=== PATIENT | female | born 1960 | race Caucasian/White ===

== ENCOUNTER 2017-12-20 15:33 | Observation (INO) | payer OTHER, SELFPAY ==
[2017-12-20] VITALS (7 sets, daily range): BP systolic 120–154; BP diastolic 65–96; PULSE 61–71; RESP 14–18; TEMP 36.1–36.6; O2SAT 96–100; BMI 23.0
--- NOTE | 2017-12-20 15:45 | ED_ITS ---
HPI - Abdominal Pain General Chief Complaint: Abdominal Pain Stated Complaint: ABD PAIN Time Seen by Provider: 12/20/17 15:45 Source: patient Mode of arrival: ambulatory Limitations: no limitations History of Present Illness HPI narrative: 57-year-old female here for evaluation of right lower quadrant abdominal pain. Patient was sent to us from the [facility] Emergency Department for concerns of possible appendicitis. Their CT scanner was inoperable. Patient states that she has had abdominal pain off and on for several months now. She states she has had multiple CT scans of her abdomen with the latest 1 being 2 days ago. According to the report from the [facility] emergency physician the CT scan that was done 2 days ago was inconclusive for appendicitis. The appendix was unable to be seen however there was no stranding around the area and no elevated white blood cell count. Patient states since then her abdominal pain has been worsening. Related Data Home Medications Medication Instructions Recorded Confirmed lorazepam 1 mg PO PRN PRN 12/20/17 12/20/17 thyroid (pork) [Nature-Throid] 1 tab PO QAM 12/20/17 12/20/17 venlafaxine 1 cap PO BID 12/20/17 12/20/17 Allergies Allergy/AdvReac Type Severity Reaction Status Date / Time prochlorperazine Allergy Intermediate Anxiety Verified 12/20/17 18:05 [From COMPAZINE] Sulfa (Sulfonamide Allergy Unknown Verified 12/20/17 18:05 Antibiotics) [SULFA (SULFONAMIDE ANTIBIOTICS)] azithromycin [From Zithromax] AdvReac Unknown Verified 12/20/17 18:05 latex AdvReac Unknown Verified 12/20/17 18:05 Review of Systems Constitutional Denies fatigue, Denies fever(s) and Denies headache(s) ENT Ears, Nose, Mouth, and Throat: Denies headache(s) Cardiovascular Denies chest pain, Denies palpitations and Denies dyspnea Respiratory Denies dyspnea Gastrointestinal Gastrointestinal: Reports abdominal pain, Denies constipation, Denies diarrhea, Reports nausea and Denies vomiting Genitourinary Denies dysuria and Denies flank pain Musculoskeletal Denies myalgias and Denies arthralgias Integumentary/Breasts Denies lesions and Denies rash Neurologic Denies confusion and Denies headache(s) Psychiatric Denies confusion Endocrine Denies fatigue and Denies palpitations Hematologic/Lymphatic Denies easy bleeding and Denies easy bruising [facility] Comment: Reviewed patient's past medical surgical family and social history Exam Initial Vital Signs Initial Vital Signs: Vital Signs Temperature 97.6 F 12/20/17 15:39 Pulse Rate 71 12/20/17 15:39 Respiratory Rate 16 12/20/17 15:39 Blood Pressure 154/96 H 12/20/17 15:39 Pulse Oximetry 98 12/20/17 15:39 Const General: cooperative, well developed and well groomed Orientation: alert, awake and oriented x3 Resp Effort & Inspection: normal respiratory effort Auscultation: clear to auscultation bilaterally Cardio Rate: regular rate Rhythm: regular rhythm Pulses: radial pulses present GI Other: Right lower quadrant abdominal pain with guarding. Some right upper quadrant Back/Spine/Pelvis Back: No CVA tenderness Skin General: no rashes or lesions noted Lesions: no lesions Rashes: no rashes Neuro General: alert and oriented x3 Cognition: normal cognition Speech: speech normal Extrem General: normal to inspection and capillary refill normal Psych Appearance: grossly normal, well kempt and not disheveled Course Orders Ordered: ED Orders 12/20/17 15:55 CT abdomen pelvis w con Stat 12/20/17 16:00 Complete Blood Count AUTO DIFF Stat Comprehensive Metabolic Panel Stat Lactate (Lactic Acid) Stat 12/20/17 16:10 Urinalysis and Microscopic Stat Sodium Chloride (Normal Saline 0.9%) 1,000 mls @ 125 mls/hr IV CONT ARMANDO Last Infusion: 12/20/17 18:06 Dose: 0 mls/hr Admin: 12/20/17 17:29 Dose: 125 mls/hr Discontinued Medications Diphenhydramine HCl (Benadryl) 50 mg IV NOW ONE Stop: 12/20/17 15:56 Last Admin: 12/20/17 16:19 Dose: 50 mg Sodium Chloride (Normal Saline 0.9%) 1,000 mls @ 1,000 mls/hr IV BOLUS ONE Stop: 12/20/17 16:44 Last Infusion: 12/20/17 17:18 Dose: 0 mls/hr Admin: 12/20/17 16:18 Dose: 1,000 mls/hr Sodium Chloride (Normal Saline 0.9%) 1,000 mls @ 1,000 mls/hr IV BOLUS ONE Stop: 12/20/17 16:53 Last Admin: 12/20/17 17:26 Dose: Methylprednisolone (Solu-Medrol 125 Mg Vial) 40 mg IV NOW ONE Stop: 12/20/17 15:56 Last Admin: 12/20/17 16:19 Dose: 40 mg Ondansetron HCl (Zofran) 4 mg IV NOW ONE Stop: 12/20/17 17:22 Last Admin: 12/20/17 17:26 Dose: Vital Signs - 8 hr 12/20/17 15:39 12/20/17 15:45 12/20/17 17:47 Temperature 97.6 F 97.6 F 97.9 F Pulse Rate 71 71 62 Respiratory Rate 16 16 18 Blood Pressure [Right Wrist] 154/96 H 128/74 H Pulse Oximetry 98 98 96 12/20/17 18:34 Temperature Pulse Rate 65 Respiratory Rate 14 Blood Pressure [Right Wrist] 137/80 H Pulse Oximetry 100 MDM - Abdominal Pain Lab Data Attestation: I reviewed the patient's lab results. Result diagrams: 12/20/17 16:00 12/20/17 16:00 Lab Results 12/20/17 12/20/17 12/20/17 Range/Units 16:00 16:00 16:00 WBC 4.8 (4.5-11.0) X10^3/uL RBC 4.90 (4.0-5.2) X10^6/uL Hgb 15.5 (12.0-16.0) g/dL Hct 45.8 (36-46) % MCV 93.5 (80-100) fL MCH 31.6 (26-34) PG MCHC 33.8 (30-36) % RDW 13.0 (11.6-14.8) % Plt Count 193 (150-400) X10^3/uL Neut % (Auto) 64.9 (50-75) % Lymph % (Auto) 25.8 (25-40) % Stonewall % (Auto) 8.6 (3-14) % Eos % (Auto) 0.4 L (2-4) % Baso % (Auto) 0.3 (0-2) % Neut # (Auto) 3100 (7738-9198) /uL Sodium 139 (137-145) mmol/L Potassium 3.8 (3.4-5.1) mmol/L Chloride 102 (98-107) mmol/L Carbon Dioxide 28 (22-32) mmol/L BUN 16 (7-17) mg/dL Creatinine 0.80 (0.52-1.04) mg/dL Estimated GFR > 60.0 (>60) mL/min BUN/Creatinine Ratio 20.0 (6-22) Glucose 91 (70-100) mg/dL Lactate 1.0 (0.7-2.1) mmol/L Calcium 9.5 (8.4-10.2) mg/dL Total Bilirubin 0.5 (0.2-1.3) mg/dL AST 30 (14-36) IU/L ALT 29 (9-52) IU/L Alkaline Phosphatase 62 (38-126) U/L Total Protein 7.2 (6.3-8.2) g/dL Albumin 4.5 (3.5-5.0) g/dL Globulin 2.7 (1.7-4.1) g/dL Albumin/Globulin Ratio 1.7 (1.0-2.8) Urine Color Urine Appearance Urine pH (4.5-8.0) Ur Specific Jackson (1.000-1.035) Urine Protein (Negative) Urine Glucose (UA) (Normal) g/dL Urine Ketones (NEGATIVE) Urine Occult Blood (Negative) Urine Nitrate (Negative) Urine Bilirubin (NEGATIVE) Urine Urobilinogen (0.2) E.U./dL Ur Leukocyte Esterase (NEGATIVE) Urine RBC (0-5/HPF) Urine WBC (0-5/HPF) Urine Bacteria (None) Ur Culture Indicated? Micro UA Comment 12/20/17 Range/Units 16:10 WBC (4.5-11.0) X10^3/uL RBC (4.0-5.2) X10^6/uL Hgb (12.0-16.0) g/dL Hct (36-46) % MCV (80-100) fL MCH (26-34) PG MCHC (30-36) % RDW (11.6-14.8) % Plt Count (150-400) X10^3/uL Neut % (Auto) (50-75) % Lymph % (Auto) (25-40) % Stonewall % (Auto) (3-14) % Eos % (Auto) (2-4) % Baso % (Auto) (0-2) % Neut # (Auto) (3148-1027) /uL Sodium (137-145) mmol/L Potassium (3.4-5.1) mmol/L Chloride (98-107) mmol/L Carbon Dioxide (22-32) mmol/L BUN (7-17) mg/dL Creatinine (0.52-1.04) mg/dL Estimated GFR (>60) mL/min BUN/Creatinine Ratio (6-22) Glucose (70-100) mg/dL Lactate (0.7-2.1) mmol/L Calcium (8.4-10.2) mg/dL Total Bilirubin (0.2-1.3) mg/dL AST (14-36) IU/L ALT (9-52) IU/L Alkaline Phosphatase (38-126) U/L Total Protein (6.3-8.2) g/dL Albumin (3.5-5.0) g/dL Globulin (1.7-4.1) g/dL Albumin/Globulin Ratio (1.0-2.8) Urine Color Yellow Urine Appearance Clear Urine pH 7.5 (4.5-8.0) Ur Specific Jackson 1.010 (1.000-1.035) Urine Protein Negative (Negative) Urine Glucose (UA) Negative (Normal) g/dL Urine Ketones Negative (NEGATIVE) Urine Occult Blood Negative (Negative) Urine Nitrate Negative (Negative) Urine Bilirubin Negative (NEGATIVE) Urine Urobilinogen 0.2 (0.2) E.U./dL Ur Leukocyte Esterase Negative (NEGATIVE) Urine RBC None seen (0-5/HPF) Urine WBC None seen (0-5/HPF) Urine Bacteria None seen (None) Ur Culture Indicated? Cult not indicated Micro UA Comment Microscopic normal Imaging Data CT scan - abdomen: Radiologist's impression: PROCEDURE: CT ABDOMEN PELVIS W CON INDICATIONS: Right lower quadrant abdominal pain TECHNIQUE: After the administration of oral and intravenous contrast, 5 mm thick sections acquired from the diaphragms to the symphysis. 5 mm thick coronal and sagittal reformats were performed. For radiation dose reduction, the following was used: automated exposure control, adjustment of mA and/or kV according to patient size. COMPARISON: None. FINDINGS: Image quality: Excellent. ABDOMEN: Lung bases: Lung bases are clear. Heart size is normal. Solid organs: Liver is normal in size. Low attenuation foci are present within the liver, too small to definitively characterize. Punctate low attenuation focus is also noted in the posterior spleen. Gallbladder is unremarkable. Biliary system is non-dilated. Pancreas enhances normally. No adrenal nodules. Kidneys are normal in size and enhancement, without hydronephrosis. Bilateral low attenuation renal foci are present. Peritoneum and bowel: Stomach, small bowel, and colon loops are normal in caliber and wall thickness. No free fluid or air. Appendix is at the upper limits of normal in size without periappendiceal inflammatory change. Significant stool is present throughout the colon particularly the right colon. Nodes and vessels: No retroperitoneal or mesenteric adenopathy. Aorta and inferior vena cava are normal in caliber. 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 There is prominent increased vascularity within the pelvis and uterus. Miscellaneous: No ventral hernias. PELVIS: Genitourinary: Bladder wall thickness is normal. Miscellaneous: No inguinal hernias or adenopathy. Bones: No suspicious bony lesions. No vertebral body compression fractures. IMPRESSION: 1. Appendix is at the upper limits of normal in size without inflammatory change. This is considered equivocal. No priors are available for comparison. Recommend correlation with patient's symptoms and short interval imaging followup if appendicitis remains a concern. 2. Prominent vascularity within the left hemiabdomen extending to the pelvis as above. Overall appearance is suggestive of pelvic congestion syndrome. 3. Prominent colonic stool without obstruction. Recommend correlation to constipation. Dictated by: Edna Gonzalze M.D. on 12/20/2017 at 18:31 Approved by: Edna Gonzalez M.D. on 12/20/2017 at 18:36 MDM Narrative Medical decision making narrative: Patient with a physical exam that is concerning for appendicitis however CT scan that is not definitive for this. Does not have an elevated white count does not have any fevers. Does have stool backup in her right colon. Patient states that her last bowel movement was this morning. Patient also still has her pelvic organs. I discussed the case with Dr. Mendieta with General surgery. Will admit the patient overnight with a bowel regiment and pain control and then serial exams. Patient has not been in the morning doctor home and stated that she would re-evaluate potential surgery. I discussed this with the patient. They expressed understanding and agreement with plan. Discharge Plan Departure Patient Disposition: Admitted as Observation Clinical Impression: Abdominal pain, Constipation Prescriptions: No Action venlafaxine 37.5 mg capsule,extended release 24hr 1 cap PO BID RF: 0 thyroid (pork) [Nature-Throid] 32.5 mg tablet 1 tab PO QAM RF: 0 lorazepam 1 mg tablet 1 mg PO PRN PRN (Reason: Anxiety) RF: 0
--- NOTE | 2017-12-20 15:55 | DI.CT.S_ITS ---
PROCEDURE: CT ABDOMEN PELVIS W CON INDICATIONS: Right lower quadrant abdominal pain TECHNIQUE: After the administration of oral and intravenous contrast, 5 mm thick sections acquired from the diaphragms to the symphysis. 5 mm thick coronal and sagittal reformats were performed. For radiation dose reduction, the following was used: automated exposure control, adjustment of mA and/or kV according to patient size. COMPARISON: None. FINDINGS: Image quality: Excellent. ABDOMEN: Lung bases: Lung bases are clear. Heart size is normal. Solid organs: Liver is normal in size. Low attenuation foci are present within the liver, too small to definitively characterize. Punctate low attenuation focus is also noted in the posterior spleen. Gallbladder is unremarkable. Biliary system is non-dilated. Pancreas enhances normally. No adrenal nodules. Kidneys are normal in size and enhancement, without hydronephrosis. Bilateral low attenuation renal foci are present. Peritoneum and bowel: Stomach, small bowel, and colon loops are normal in caliber and wall thickness. No free fluid or air. Appendix is at the upper limits of normal in size without periappendiceal inflammatory change. Significant stool is present throughout the colon particularly the right colon. Nodes and vessels: No retroperitoneal or mesenteric adenopathy. Aorta and inferior vena cava are normal in caliber. 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 There is prominent increased vascularity within the pelvis and uterus. Miscellaneous: No ventral hernias. PELVIS: Genitourinary: Bladder wall thickness is normal. Miscellaneous: No inguinal hernias or adenopathy. Bones: No suspicious bony lesions. No vertebral body compression fractures. IMPRESSION: 1. Appendix is at the upper limits of normal in size without inflammatory change. This is considered equivocal. No priors are available for comparison. Recommend correlation with patient's symptoms and short interval imaging followup if appendicitis remains a concern. 2. Prominent vascularity within the left hemiabdomen extending to the pelvis as above. Overall appearance is suggestive of pelvic congestion syndrome. 3. Prominent colonic stool without obstruction. Recommend correlation to constipation. Dictated by: Edna Gonzalez M.D. on 12/20/2017 at 18:31 Approved by: Edna Gonzalez M.D. on 12/20/2017 at 18:36
[2017-12-20 16:14] LABS: Add Manual Diff / Slide Review NO; Basophils Percent Auto 0.3 % (0-2); Eosinophils Percent Auto 0.4 % (2-4); Hematocrit 45.8 % (36-46); Hemoglobin 15.5 g/dL (12.0-16.0); Lymphocytes Percent Auto 25.8 % (25-40); Mean Corpuscular HGB Conc 33.8 % (30-36); Mean Corpuscular Hemoglobin 31.6 PG (26-34); Mean Corpuscular Volume 93.5 fL (80-100); Monocytes Percent Auto 8.6 % (3-14); Neutrophils Absolute Auto 3100 /uL (3000-5900); Neutrophils Percent Auto 64.9 % (50-75); Platelet Count 193 X10^3/uL (150-400); White Blood Cell Count 4.8 X10^3/uL (4.5-11.0)
[2017-12-20 16:14] LABS: Bacteria Urine None Seen; RBC Urine None Seen (0-5/HPF); WBC Urine None Seen (0-5/HPF)
[2017-12-20 16:15] LABS: Appearance Urine UA CLEAR; Bilirubin Urine UA NEGATIVE (NEGATIVE); Color Urine UA YELLOW; Glucose Urine UA NEGATIVE (Normal); Ketones Urine UA NEGATIVE (NEGATIVE); Leukocyte Esterase Urine UA NEGATIVE (NEGATIVE); Nitrite Urine UA Negative (Negative); Occult Blood Urine UA NEGATIVE (Negative); Protein Urine UA NEGATIVE (Negative); Urobilinogen Urine UA 0.2 E.U./dL (0.2); pH Urine UA 7.5 (4.5-8.0)
[2017-12-20] MEDS: SODIUM CHLORIDE 0.9% 1,000 ML 1000 ML IV (16:18)
[2017-12-20] MEDS: methylPREDNISolone 125 MG/2 ML VIAL 40 MG IV (16:19)
[2017-12-20] MEDS: diphenhydrAMINE 50 MG/ML VIAL IV (16:19)
[2017-12-20 16:27] LABS: Culture Indicated Urine Cult Not Indicated; Urine Comments Microscopic Normal
[2017-12-20 16:38] LABS: Alanine Aminotransferase 29 IU/L (9-52); Albumin 4.5 g/dL (3.5-5.0); Albumin Globulin Ratio 1.7 (1.0-2.8); Alkaline Phosphatase 62 U/L (38-126); Aspartate Aminotransferase 30 IU/L (14-36); Bilirubin Total 0.5 mg/dL (0.2-1.3); Blood Urea Nitrogen 16 mg/dL (7-17); Calcium 9.5 mg/dL (8.4-10.2); Carbon Dioxide 28 mmol/L (22-32); Chloride 102 mmol/L (98-107); Estimated Glomerular Filt Rate > 60.0 mL/min (>60); Globulin 2.7 g/dL (1.7-4.1); Glucose 91 mg/dL (70-100); HEMOLYSIS < 15 (0-50); Potassium 3.8 mmol/L (3.4-5.1); Sodium 139 mmol/L (137-145); Total Protein 7.2 g/dL (6.3-8.2)
[2017-12-20] MEDS: SODIUM CHLORIDE 0.9% 1,000 ML 125 ML IV (17:29)
[2017-12-20] MEDS: LACTULOSE 20 GM/30 ML SOLUTION 30 GM PO (19:20)
[2017-12-21] VITALS (14 sets, daily range): BP systolic 120–166; BP diastolic 64–86; PULSE 51–79; RESP 10–18; TEMP 36.3–37.1; O2SAT 95–100; BMI 23.0
--- NOTE | 2017-12-21 | PATH_ITS ---
[facility] Accession Number: [id number] . 01 Material submitted: . APPENDIX . 02 Diagnosis: Appendix: Fibrous luminal obliteration at appendiceal tip, but negative for acute inflammation. MRV/12/24/2017 . 02 Electronically signed: . Ger Hercules MD, Pathologist NPI- [id number] . 01 Gross description: . Received in formalin, labeled appendix, is an intact appendix (length-3.7 cm, diameter-0.3 cm) with escobedo-white, smooth, shiny serosa and a mesoappendix (up to 1.0 cm in depth). The resection margin is received stapled. The lumen contains brown, solid, soft material. The wall is up to 0.1 cm thick. No nodules, masses or lesions are identified. The resection margin is inked black. Section code: (A1) resection margin en face and three additional serial sections; (A2) one-half of the bivalved tip. Additional sections: (A3) remaining tissue. Specimen entirely submitted. ([id number]) /MRV . 02 Microscopic: . Sections are of appendix. The entire appendix has been embedded and examined histologically. There is fibrous luminal obliteration at the appendiceal tip, but there is no evidence of acute inflammation. There is no evidence of neoplasm. . 02 Pathologist provided ICD-10: R10.9 . 02 CPT . 586256 Performed at: 01 [facility] [address] [id number] MD Jose Angel Cardoso MD Phone: [phone] Performed at: 02 [facility] [place] [address] [address] [place], [place] [id number] MD Orestes Rdz MD Phone: [phone]
[2017-12-21] MEDS: SODIUM CHLORIDE 0.9% 1,000 ML 125 ML IV ×2 (03:00→12:10)
[2017-12-21] MEDS: MORPHINE 2 MG/ML INJ IV ×2 (09:36→18:49)
[2017-12-21] MEDS: VENLAFAXINE 37.5 MG TABLET PO ×2 (09:37→21:07)
[2017-12-21] MEDS: LORazepam 0.5 MG TABLET PO ×2 (09:37→21:04)
[2017-12-21] MEDS: PIPERACILLIN-TAZO 3.375 GM/50 ML FROZ.PIGGY IV ×3 (09:40→21:04)
--- NOTE | 2017-12-21 11:10 | CM.DANOTE ---
Discharge Planning/Care Management DCP: assessment: case received, EMR reviewed and met with pt and her Gareth. Introduced self and role. Pt is a 57 year old female who admitted yesterday night to care of [facility]: Dr. Mendieta [place] [facility] [place] Payer: Ra Reynaga PCP: Dr. Alis Bernard. Full dx and POC are in process. Will follow prn to assist with d/c issues and options as these arise. Is unclear at this point if surgery will be indicated. CM Discharge Assessment Start: 12/21/17 11:06 Freq: Status: Active Protocol: Document 12/21/17 11:07 ITV (Rec: 12/21/17 11:09 ITV [id number]) Discharge Planning Assessment History Provided By Patient Family Member Medical Record Prior Living Arrangements House Household Members spouse Comment employer: [employer] Independent with ADL's Yes Is patient alert and oriented? Yes Review Status In Process Next Review Type Continued Stay Review Document 12/21/17 11:10 ITV (Rec: 12/21/17 11:10 ITV [email or web address]) Discharge Planning Assessment History Provided By Patient Family Member Medical Record Prior Living Arrangements House Household Members spouse Comment employer: [employer] Independent with ADL's Yes Is patient alert and oriented? Yes Review Status In Process Next Review Type Continued Stay Review
--- NOTE | 2017-12-21 11:13 | P.HP_ITS ---
History of Present Illness Date Patient Seen: 12/21/17 Time Patient Seen: 08:08 Chief complaint: ABD PAIN Narrative: Jie and generally healthy 57-year-old lady who has had several days of right lower quadrant abdominal pain. She was seen [facility] and a CT there did not reveal any obvious abnormality. As she did not have a white count, she was discharged home. It is notable that she was given 40 mg of IV Solu-Medrol before the CAT scan because she has had a prior reaction to IV contrast. A couple of days past but her pain did not improve. She presented to our emergency room last evening again complaining of fairly severe right lower quadrant pain. She had had a bowel movement on the day of admission and it did not improve her pain. Her CT scan was notable for an appendix that was at the upper limits of normal but no obvious evidence of stranding. Again, it is notable that she received a 2nd dose of IV Solu-Medrol due to her prior reaction to IV contrast. The only notable finding on her CT scan other than the size of her appendix was a significant amount of stool in the right colon. She was admitted last night and started on lactulose. She had a couple of bowel movements overnight but that has not improved her pain. She has been afebrile since admission. Patient History Family & Social History Family History: Reviewed 12/21/17 by Nydia Mendieta MD Social History: household members spouse Prior Living Arrangements House Safety & Behavioral: Feels Safe in Current Yes Environment Been Physically Hurt or No Threatened By a Person Suicidal Ideation Description None Meds Home Medications Medication Instructions Recorded Confirmed Type lorazepam 1 mg PO PRN PRN 12/20/17 12/20/17 History thyroid (pork) [Nature-Throid] 1 tab PO QAM 12/20/17 12/20/17 History venlafaxine 1 cap PO BID 12/20/17 12/20/17 History Allergies Allergy/AdvReac Type Severity Reaction Status Date / Time prochlorperazine Allergy Intermediate Anxiety Verified 12/20/17 18:05 [From COMPAZINE] Sulfa (Sulfonamide Allergy Unknown Verified 12/20/17 18:05 Antibiotics) [SULFA (SULFONAMIDE ANTIBIOTICS)] azithromycin [From Zithromax] AdvReac Unknown Verified 12/20/17 18:05 latex AdvReac Unknown Verified 12/20/17 18:05 Review of Systems Review of Systems Denies nausea or vomiting but she does have a little bit of anorexia. She denies any fever, sick contacts, pain with urination, joint pain, changes in vision, headaches, or any other constitutional symptoms. Essentially, the entire 13 system review is negative with the exception of what has been described in the history of present illness. The patient does report that she has been feeling a little more anxious than usual due to the circumstances. Exam Vital Signs (past 8 hours): - 12/21/17 03:53 12/21/17 09:15 Temperature 97.9 F 98.2 F Pulse Rate 52 L 54 L Respiratory Rate 16 14 Blood Pressure 139/83 H 122/78 H Pulse Oximetry 100 99 Oxygen Delivery Method Room Air Oxygen Flow Rate 0 Narrative Exam Narrative: Very pleasant, thin, well-developed, well-nourished lady in no distress. She is lying on her left side as this seems to be the most comfortable position regarding pain. She does not desire pain meds as she does not like to take medicine of any kind. HEENT: Normocephalic and atraumatic, pupils are equal round and reactive to light accommodation with anicteric sclera Lungs: Clear to auscultation bilaterally Heart: Regular rate and rhythm without murmur rub or gallop Abdomen: Soft, significantly tender to palpation in the right lower quadrant with some voluntary guarding. A mild amount of global abdominal tenderness but quite pronounced in the right lower quadrant. Extremities: Warm and well perfused and without edema. Objective Labs Result Diagrams: 12/20/17 16:00 12/20/17 16:00 Labs: Laboratory Results - last 24 hr 12/20/17 12/20/17 12/20/17 16:00 16:00 16:00 WBC 4.8 RBC 4.90 Hgb 15.5 Hct 45.8 MCV 93.5 MCH 31.6 MCHC 33.8 RDW 13.0 Plt Count 193 Neut % (Auto) 64.9 Lymph % (Auto) 25.8 [place] % (Auto) 8.6 Eos % (Auto) 0.4 L Baso % (Auto) 0.3 Neut # (Auto) 3100 Sodium 139 Potassium 3.8 Chloride 102 Carbon Dioxide 28 BUN 16 Creatinine 0.80 Estimated GFR > 60.0 BUN/Creatinine Ratio 20.0 Glucose 91 Lactate 1.0 Calcium 9.5 Total Bilirubin 0.5 AST 30 ALT 29 Alkaline Phosphatase 62 Total Protein 7.2 Albumin 4.5 Globulin 2.7 Albumin/Globulin Ratio 1.7 Urine Color Urine Appearance Urine pH Ur Specific [place] Urine Protein Urine Glucose (UA) Urine Ketones Urine Occult Blood Urine Nitrate Urine Bilirubin Urine Urobilinogen Ur Leukocyte Esterase Urine RBC Urine WBC Urine Bacteria Ur Culture Indicated? Micro UA Comment 12/20/17 16:10 WBC RBC Hgb Hct MCV MCH MCHC RDW Plt Count Neut % (Auto) Lymph % (Auto) [place] % (Auto) Eos % (Auto) Baso % (Auto) Neut # (Auto) Sodium Potassium Chloride Carbon Dioxide BUN Creatinine Estimated GFR BUN/Creatinine Ratio Glucose Lactate Calcium Total Bilirubin AST ALT Alkaline Phosphatase Total Protein Albumin Globulin Albumin/Globulin Ratio Urine Color Yellow Urine Appearance Clear Urine pH 7.5 Ur Specific [place] 1.010 Urine Protein Negative Urine Glucose (UA) Negative Urine Ketones Negative Urine Occult Blood Negative Urine Nitrate Negative Urine Bilirubin Negative Urine Urobilinogen 0.2 Ur Leukocyte Esterase Negative Urine RBC None seen Urine WBC None seen Urine Bacteria None seen Ur Culture Indicated? Cult not indicated [place] [address] CT Scan Report Signed Patient: Cayden Hollingsworth MR#: [id number] : 1960 Acct:[id number] Age/Sex: 57 / F Date of Service: 12/20/17 Loc: ED Accession Number: [id number] Procedure: CT abdomen pelvis w con Ordering Provider: Nick Vital D.O. PROCEDURE: CT ABDOMEN PELVIS W CON INDICATIONS: Right lower quadrant abdominal pain TECHNIQUE: After the administration of oral and intravenous contrast, 5 mm thick sections acquired from the diaphragms to the symphysis. 5 mm thick coronal and sagittal reformats were performed. For radiation dose reduction, the following was used: automated exposure control, adjustment of mA and/or kV according to patient size. COMPARISON: None. FINDINGS: Image quality: Excellent. ABDOMEN: Lung bases: Lung bases are clear. Heart size is normal. Solid organs: Liver is normal in size. Low attenuation foci are present within the liver, too small to definitively characterize. Punctate low attenuation focus is also noted in the posterior spleen. Gallbladder is unremarkable. Biliary system is non-dilated. Pancreas enhances normally. No adrenal nodules. Kidneys are normal in size and enhancement, without hydronephrosis. Bilateral low attenuation renal foci are present. Peritoneum and bowel: Stomach, small bowel, and colon loops are normal in caliber and wall thickness. No free fluid or air. Appendix is at the upper limits of normal in size without periappendiceal inflammatory change. Significant stool is present throughout the colon particularly the right colon. Nodes and vessels: No retroperitoneal or mesenteric adenopathy. Aorta and inferior vena cava are normal in caliber. 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 There is prominent increased vascularity within the pelvis and uterus. Miscellaneous: No ventral hernias. PELVIS: Genitourinary: Bladder wall thickness is normal. Miscellaneous: No inguinal hernias or adenopathy. Bones: No suspicious bony lesions. No vertebral body compression fractures. IMPRESSION: 1. Appendix is at the upper limits of normal in size without inflammatory change. This is considered equivocal. No priors are available for comparison. Recommend correlation with patient's symptoms and short interval imaging followup if appendicitis remains a concern. 2. Prominent vascularity within the left hemiabdomen extending to the pelvis as above. Overall appearance is suggestive of pelvic congestion syndrome. 3. Prominent colonic stool without obstruction. Recommend correlation to constipation. Dictated by: Edna Gonzalez M.D. on 12/20/2017 at 18:31 Approved by: Edna Gonzalez M.D. on 12/20/2017 at 18:36 Assessment & Plan Plan: Assessment/Plan Narrative: Pleasant and otherwise healthy lady with multiple days of right lower quadrant pain and suspicious CT scan. The picture is little bit muttled due to the doses of steroids that were given to her so that she could tolerate CT scans. This may be the reason that we see a large appendix but we do not see a lot of inflammation in the surrounding tissue. Her pain has not improved at all with conservative management. I have recommended diagnostic laparoscopy with appendectomy and indicated procedures. I have discussed the risks and benefits of the procedure with the patient and her and they both expressed a desire to completed today. We are scheduled for approximately 330 in the operating room.
--- NOTE | 2017-12-21 16:45 | SUR.OPER ---
Supine on padded OR bed, head on pillow, arms secured on padded arm boards at <90 degrees abduction, legs uncrossed, safety belt at thigh, tape over blanket over lower legs.
[2017-12-21] MEDS: LIDOCAINE 1% W/EPI INJ 20 ML INJ (16:48)
[2017-12-21] MEDS: BUPIVACAINE 0.5% MDV 50 ML INJ (16:48)
[2017-12-21] MEDS: ACETAMINOPHEN IV 1,000 MG/100 ML VIAL 400 MG IV (17:01)
--- NOTE | 2017-12-21 17:08 | PM.OP.1 ---
Operative Date/Time/Diagnoses Date of procedure: 12/21/17 Time of procedure: 17:08 Pre-op diagnosis: Right lower quadrant pain Post-op diagnosis: same Procedure & Clinicians Procedure: Laparoscopy with appendectomy Same procedure as scheduled: Yes Indications: Continued right lower quadrant pain Surgeon: Nydia Mendieta Click Yes if Unassisted: Yes Anesthesia Type: General (Dr. Ortez) and Local Operative Notes Findings: Dilated appendix without gross evidence of inflammation Specimen(s): other (Appendix in formalin to pathology) Estimated Blood Loss (mL): 10 Procedure in detail: After obtaining informed consent, the patient was brought to the operating room and placed in the supine position on the operating table. Following successful induction of general endotracheal anesthesia, appropriate padding of all ashvin prominences, and placement of appropriate monitors, the abdomen was prepped and draped in the standard surgical fashion. A timeout was held per SDOAP protocol. Following infiltration with local anesthetic to create a field block, an incision was created inferior to the umbilicus and carried down through the skin and subcutaneous tissue to reveal the fascia below. 2-0 Vicryl retention sutures were placed on either side of midline and the abdomen was entered under direct vision using an 11 blade scalpel. A 12 mm blunt-tipped Strong trocar was placed in the abdominal cavity and it was insufflated to 15 mmHg pressure. The patient was placed in Trendelenburg position with the left side rotated toward the floor. Under direct vision, a second 5 mm trocar was placed in the right upper quadrant and a third 5 mm trocar was placed midway between the umbilicus and the pubis. The camera was placed in the abdominal cavity and we immediately visualized the appendix in the anti-cecal position. The appendix was grasped and elevated to reveal its attachment to the cecum. 3 loads of a laparoscopic stapling device were used to liberate the appendix and its mesentery from its attachment to the cecum. The specimen was placed in a bag and removed via the umbilical port. The wounds were checked for hemostasis. The operative site was visualized and irrigated with warm saline solution. The abdomen was aspirated free of all fluid and particulate matter. The trochars were removed under direct vision. The abdomen was desufflated by giving the patient a large Valsalva maneuver. The umbilical incision was closed in 2 layers with Vicryl and Monocryl suture. Monocryl sutures were placed in the other 2 port sites. All sponge, needle, and instrument counts were correct at the conclusion of the case. The patient was allowed to awaken from anesthesia without difficulty and taken to the post-anesthesia care unit in good condition. Complications: none Condition: stable Disposition: PACU Plan for aftercare: [facility] care 2. Likely home tomorrow if she does well postoperatively
[2017-12-21] MEDS: fentaNYL 100 MCG/2 ML INJ 25 MCG IV (17:25)
[2017-12-21] MEDS: OXYCODONE IR 5 MG TABLET PO (19:30)
[2017-12-21] MEDS: DEXTROSE 5%-0.45% NS 1,000 ML 70 ML IV (20:33)
[2017-12-22] VITALS (7 sets, daily range): BP systolic 109–144; BP diastolic 68–80; PULSE 47–58; RESP 16–18; TEMP 36.3–37.1; O2SAT 98–100
[2017-12-22] MEDS: PIPERACILLIN-TAZO 3.375 GM/50 ML FROZ.PIGGY IV ×3 (03:43→14:55)
[2017-12-22] MEDS: LORazepam 0.5 MG TABLET PO ×2 (08:51→21:10)
[2017-12-22] MEDS: DEXTROSE 5%-0.45% NS 1,000 ML 70 ML IV (08:51)
[2017-12-22] MEDS: OXYCODONE IR 5 MG TABLET PO ×2 (09:00→18:29)
[2017-12-22] MEDS: VENLAFAXINE ER 37.5 MG CAP PO ×2 (09:02→21:11)
--- NOTE | 2017-12-22 15:24 | PC.NURSE ---
HOME THYROID MEDICATION SENT TO PHARMACY.
--- NOTE | 2017-12-22 18:41 | PM.PN.1 ---
Subjective Date Patient Seen: 12/22/17 Time Patient Seen: 18:41 Interval history: Sonia reports that the pain she had at the time of admission has not changed. Her abdomen is sore from her appendectomy but the pain she now describes as being in her right hip has not improved. She reports she is passing flatus. She is taking a little bit of pain medicine but not much. She is understandably frustrated. Exam Vital Signs (past 8 hours): - 12/22/17 12:15 12/22/17 16:45 12/22/17 18:29 Temperature 98.7 F 97.6 F 98.8 F Pulse Rate 52 L 57 L Respiratory Rate 18 18 Blood Pressure 126/78 H 109/68 Pulse Oximetry 100 98 Oxygen Delivery Method Room Air Oxygen Flow Rate 0 Narrative Exam Narrative: Abdomen is soft, appropriately tender to palpation, active bowel sounds. Pain is located just medial to the a iliac wing spine on the right. She says it does not really make it worse to push there but she can definitely localized the pain and says that it comes through what she perceives as her hip joint. Objective Labs Result Diagrams: 12/20/17 16:00 12/20/17 16:00 Assessment & Plan Plan: Assessment/Plan Narrative: I talked with Sonia and her about our options. We are going to try Neurontin tonight and see if it improves her pain at least allows her to sleep. I have also requested a K-pad. I will order lumbar spine films and a hip series in the morning. We will plan to consult Orthopedics in the morning and get their ideas and input.
[2017-12-22] MEDS: ONDANSETRON 4 MG/2 ML INJ IV (19:47)
[2017-12-22] MEDS: GABAPENTIN 300 MG CAPSULE PO (21:11)
--- NOTE | 2017-12-22 22:32 | PC.NURSE ---
12/225 - pt alert and oriented x4, independent with ambulation, VSS with HR trending in 50's, shows to be baseline. PRN analgesics asked for once this shift, pain to be stated at RLQ and Right hip, states pain is similar to first admission pain. x3 Lap site, c/d/i, tolerating general diet, denied nausea but zofran administered once to assist with abdominal pain. Neurontin started tonight to see if it reduces unknown cause of pain. Spouse at bedside supportive. Pt refusing antibiotics, states she has had enough.
--- NOTE | 2017-12-23 | DI.RAD.S_ITS ---
PROCEDURE: XR LUMBAR SPINE 2-3V INDICATIONS: Right hip and groin pain TECHNIQUE: 3 views of the lumbar spine were acquired. COMPARISON: [facility], CR, XR HIP W PEL IF DONE RT 2V, 12/23/2017, 10:18. [facility], CT, CT ABDOMEN PELVIS W CON, 12/20/2017, 18:01. FINDINGS: Bones: 5 [id number] vertebrae are present. No vertebral body compression fractures. No suspicious bony lesions. The disc heights are relatively well-preserved. Minimal anterolisthesis is seen at L5-S1. Mild dextroconvex scoliotic curvature is seen. Lower lumbar spine facet arthropathy is seen. Soft tissues: Overlying bowel gas pattern is normal. No suspicious soft tissue calcifications. IMPRESSION: Mild, age-appropriate degenerative changes are seen. Dictated by: Jaxson Chinchilla M.D. on 12/23/2017 at 10:59 Approved by: Jaxson Chinchilla M.D. on 12/23/2017 at 11:00
--- NOTE | 2017-12-23 | DI.MRI.S_ITS ---
PROCEDURE: MR HIP RT WO CON INDICATIONS: Right hip pain TECHNIQUE: Noncontrast coronal T1 spin echo and STIR through the bony pelvis. Coronal and axial T2 fast spin echo with fat saturation, sagittal T1 spin echo, and oblique axial T2 fast spin echo with fat saturation through the hip. COMPARISON: [facility], CR, XR HIP W PEL IF DONE RT 2V, 12/23/2017, 10:18. FINDINGS: Image quality: Excellent. Bones and joints: Nonspecific 7 mm T2 hyperintensity seen in the left posteromedial ilium. Otherwise the marrow of the pelvic ring and proximal femurs show normal signal throughout. No intraosseous lesions or fractures. No avascular necrosis of the femoral heads. The visualized lower lumbar spine appears normally aligned. Tendons and ligaments: The gluteus medius and minimus tendons appear intact, without associated muscle atrophy. The nearby proximal iliotibial band also appears intact. The iliopsoas tendon appears intact, without adjacent bursal fluid collections or evidence for impingement syndrome. The origin of the hamstring tendon is mildly thickened at the ischial tuberosity. This appears chronic. The straight and reflected heads of the rectus femoris muscle origin appear intact, as well as the conjoint tendon. The ligamentum teres appears intact where visualized. Labrum and cartilage: The acetabular labrum appears intact in the absence of intra-articular contrast. Possible early synovial herniation pits in the femoral head neck junction. Cartilage surface of the femoral head appears of normal thickness. The alpha angle of the femur is within normal limits at less than 55 degrees. Soft tissues: Visualized muscles demonstrate normal bulk and internal signal. Quadratus femoris muscle demonstrates no internal edema to suggest ischiofemoral impingement. The proximal sciatic neurovascular bundle appears normal adjacent to the hamstring tendons. No free pelvic fluid. Bladder wall thickness is normal. Genitourinary structures and bowel loops appear normal where visualized. IMPRESSION: Overall, grossly unremarkable examination without a specific etiology to explain right hip pain. Nonspecific T2 hyperintense lesion involving the left posteromedial ilium, indeterminate. Low-grade chronic appearing hamstring origin tendinopathy Dictated by: Edison Jaimes M.D. on 12/23/2017 at 13:25 Approved by: Edison Jaimes M.D. on 12/23/2017 at 13:31
--- NOTE | 2017-12-23 | DI.RAD.S_ITS ---
PROCEDURE: XR HIP W PEL IF DONE RT 2V INDICATIONS: Right hip and groin pain TECHNIQUE: AP pelvis with lateral view(s) of the right hip(s). COMPARISON: [facility], CR, XR LUMBAR SPINE 2-3V, 12/23/2017, 10:18. [facility], CT, CT ABDOMEN PELVIS W CON, 12/20/2017, 18:01. FINDINGS: Bones: No fractures or dislocations. Pelvic ring appears intact. No suspicious bony lesions. Mild, age-appropriate degenerative changes are seen. Soft tissues: The visualized bowel gas pattern is normal. No suspicious soft tissue calcifications. An anastomotic staple line is seen within the right pelvis. IMPRESSION: Unremarkable imaging examination for age. Dictated by: Jaxson Chinchilla M.D. on 12/23/2017 at 11:00 Approved by: Jaxson Chinchilla M.D. on 12/23/2017 at 11:01
[2017-12-23] MEDS: DEXTROSE 5%-0.45% NS 1,000 ML 70 ML IV (02:02)
[2017-12-23 06:05] VITALS: BP 140/82; PULSE 58; RESP 16; TEMP 36.8; O2SAT 99
[2017-12-23 08:00] VITALS: BP 155/86; PULSE 52; RESP 16; TEMP 36.6; O2SAT 99
[2017-12-23] MEDS: Nature-Throid 1 EACH PO (09:01)
[2017-12-23] MEDS: LORazepam 0.5 MG TABLET PO (09:05)
[2017-12-23] MEDS: VENLAFAXINE ER 37.5 MG CAP PO (09:14)
[2017-12-23] MEDS: OXYCODONE IR 5 MG TABLET PO (11:19)
[2017-12-23 12:00] VITALS: BP 141/78; PULSE 51; RESP 16; TEMP 36.7; O2SAT 98
[2017-12-23 13:50] VITALS: O2SAT 98
--- NOTE | 2017-12-23 14:07 | PM.CN ---
History of Present Illness Chief complaint: ABD PAIN [facility] Social History household members: spouse Meds Home Medications Medication Instructions Recorded Confirmed Type lorazepam 1 mg PO PRN PRN 12/20/17 12/20/17 History thyroid (pork) [Nature-Throid] 1 tab PO QAM 12/20/17 12/20/17 History venlafaxine 1 cap PO BID 12/20/17 12/20/17 History Allergies Allergy/AdvReac Type Severity Reaction Status Date / Time prochlorperazine Allergy Intermediate Anxiety Verified 12/20/17 18:05 [From COMPAZINE] Sulfa (Sulfonamide Allergy Unknown Verified 12/20/17 18:05 Antibiotics) [SULFA (SULFONAMIDE ANTIBIOTICS)] azithromycin [From Zithromax] AdvReac Unknown Verified 12/20/17 18:05 latex AdvReac Unknown Verified 12/20/17 18:05 Exam Vital Signs (past 8 hours): - 12/23/17 08:00 12/23/17 12:00 12/23/17 13:50 Temperature 97.8 F 98.0 F Pulse Rate 52 L 51 L Respiratory Rate 16 16 Blood Pressure 155/86 H 141/78 H Pulse Oximetry 99 98 98 Fraction of Inspired Oxygen 21 Oxygen Delivery Method Room Air Oxygen Flow Rate 0 Narrative Exam Narrative: Healthy-appearing female alert orient conversant and in no obvious distress complaining of mild lateral gluteal right hip pain. Patient is afebrile and vital signs are stable HEENT normocephalic atraumatic. Lungs are clear auscultation. Heart regular rate and rhythm. Abdomen benign. Examination of right lower extremity demonstrates notable tenderness over the gluteal musculature greater trochanter and somewhat down the iliotibial band. Hip range of motion is 140? of flexion, 30? internal rotation, 70? external rotation, 70? abduction, and 30? adduction. Mild to moderate discomfort with flexion adduction and rotation. Distal neurovascular examination intact. Objective Labs Result Diagrams: 12/20/17 16:00 12/20/17 16:00 Assessment & Plan Plan: Assessment/Plan Narrative: History and current examination is suggestive of gluteal strain trochanteric bursitis. MRI scan is pending and I think it is reasonable to proceed with that to assure no other specific pathology the area. As long as the MRI is normal I would suggest a course of physical therapy, ice to the hip, NSAIDs as needed. Patient may be ambulatory weight-bearing as tolerated and be treated as an outpatient. Follow up in Orthopedic Clinic if not substantially improved over the next few weeks.
--- NOTE | 2017-12-23 15:42 | P.DS_ITS ---
History of Present Illness Chief complaint: ABD PAIN Narrative: Jie and generally healthy 57-year-old lady who has had several days of right lower quadrant abdominal pain. She was seen [facility] and a CT there did not reveal any obvious abnormality. As she did not have a white count, she was discharged home. It is notable that she was given 40 mg of IV Solu-Medrol before the CAT scan because she has had a prior reaction to IV contrast. A couple of days past but her pain did not improve. She presented to our emergency room last evening again complaining of fairly severe right lower quadrant pain. She had had a bowel movement on the day of admission and it did not improve her pain. Her CT scan was notable for an appendix that was at the upper limits of normal but no obvious evidence of stranding. Again, it is notable that she received a 2nd dose of IV Solu-Medrol due to her prior reaction to IV contrast. The only notable finding on her CT scan other than the size of her appendix was a significant amount of stool in the right colon. She was admitted last night and started on lactulose. She had a couple of bowel movements overnight but that has not improved her pain. She has been afebrile since admission. Discharge Providers Date of admission: 12/20/17 19:40 Primary care physician: Drew Bernard MD Consults: 12/20/17 19:03 Consult to General Surgery Routine Comment: Consulting Provider: Nydia Mendieta Reason for consultation: Admission Has provider been notified: Yes Discharge provider: Nydia Mendieta MD Summary Discharge Diagnosis: 1. Right lower quadrant pain 2. Chronic right hamstring tendonitis Hospital Course: Mrs. Hollingsworth was admitted through the emergency room and then taken to the operating room for laparoscopic appendectomy. On the day following the procedure, she reported that her pain was unchanged. We obtained x-rays and consulted Dr. Darshan Jerry who recommended an MRI. MRI revealed chronic hamstring tendonitis and physical therapy was recommended. Currently, Mrs. Hollingsworth is feeling more optimistic about her course. She is discharged to her home in the care of her family. Status at Discharge Cognitive/behavioral status at discharge: Normal Functional status at discharge: independent ambulation Overall status at discharge: patient is progressing back to baseline Time Spent with Patient Less than 30 minutes Exam Vital Signs (past 8 hours): - 12/23/17 08:00 12/23/17 12:00 12/23/17 13:50 Temperature 97.8 F 98.0 F Pulse Rate 52 L 51 L Respiratory Rate 16 16 Blood Pressure 155/86 H 141/78 H Pulse Oximetry 99 98 98 Fraction of Inspired Oxygen 21 Oxygen Delivery Method Room Air Oxygen Flow Rate 0 Objective Labs Result Diagrams: 12/20/17 16:00 12/20/17 16:00 Discharge Plan Discharge Plan Patient Disposition: Home, Self-Care Provider Discharge Instructions Diet: Diet as Tolerated Activity: You may shower as desired. Do not soak the incisions in water for at least 2 weeks. Cold/Heat Therapy: Apply ice to the incisions as often as desired for the next 48 hours. This can be beneficial with bruising and pain. Wound Care Report to your healthcare provider any signs of infection, such as:: chills, fever, night sweats, increased pain and unusual drainage Discharge Data Primary Care Provider: Giancarlo Bernard Attending Provider: Nydia Mendieta Admcharbel Date/Time: 12/20/17 19:40
--- NOTE | 2017-12-23 16:27 | PC.NURSE ---
Dr Mendieta in to see. D/C orders recieved. Pt HL discontinued intact. Home meds recieved from pharmacy. D/C instructions given w/apparent understanding. Pt and escorted by staff to waiting vehicle. Pt D/C'd in stable post op status.
== END 2017-12-23 16:20 | disposition home or self-care (01) ==
LOC: ED 19:02 → AC 19:41
PROVIDERS: Admitting Provider Surgery; Emergency Provider Emergency Medicine; Family Provider Family Medicine; PCP Family Medicine; Visit Provider Surgery
PROC: 0DTJ4ZZ Resection of Appendix, Percutaneous Endoscopic Approach (ICD-10-PCS; CPT 44970; principal; 2017-12-21 15:30)
DX: R10.31 Right lower quadrant pain (principal)
CPT/HCPCS: 44970; 36591; 72100; 73502; 73721; 74177; 80053; 81001; 83605; 85025; 96361; 96374; 96375; 99285; G0378; J0131; J0330; J1100; J1200; J1885; J2250; J2270; J2405; J2543; J2704; J2930; J3010; Q9967

== ENCOUNTER → 2022-09-21 09:52 | Outpatient (CLI) | payer OTHER, SELFPAY ==
[2022-09-16 09:26] VITALS: BMI 23.0
--- NOTE | 2022-09-21 | DI.NM.S_ITS ---
PROCEDURE: [place] BONE SCAN WHOLE BODY RADIOPHARMACEUTICAL: 22 mCi Tc-99m MDP IV. INDICATIONS: LUNG CANCER TECHNIQUE: Delayed whole-body scintigrams were obtained approximately 3-4 hours after intravenous injection of radiotracer. Anterior and posterior views were acquired from vertex to feet. COMPARISON: None. FINDINGS: There is normal radiotracer excretion in the urinary system. Scattered areas of uptake in the spine, and upper lower extremities favored to represent degenerative changes. No overtly suspicious focus of radiotracer uptake identified IMPRESSION: No overtly suspicious focus of radiotracer uptake. Axial and appendicular skeletal uptake, especially around the joints, favored to represent degenerative changes. Consider follow-up in the setting of malignancy history and cross-sectional imaging correlation. Dictated by: Kristofer Rodriguez M.D. on 09/21/2022 at 16:09 Approved by: Kristofer Rodriguez M.D. on 09/21/2022 at 16:12
== END ==
PROVIDERS: Family Provider Family Medicine; PCP Physician Assistant Medical; Referring Provider Internal Medicine Hematology & Oncology; Visit Provider Internal Medicine Hematology & Oncology
DX: C34.11 Malignant neoplasm of upper lobe, right bronchus or lung (principal)
CPT/HCPCS: 78306; A9503

== ENCOUNTER → 2024-05-12 10:52 | Outpatient (CLI) | payer OTHER, SELFPAY ==
[2022-09-16 09:26] VITALS: BMI 23.0
--- NOTE | 2024-05-12 | DI.NM.S_ITS ---
PROCEDURE: [place] BONE SCAN WHOLE BODY RADIOPHARMACEUTICAL: 20.4 mCi Tc-99m MDP IV. INDICATIONS: Malignant neoplasm of upper lobe, right bronchus or lung TECHNIQUE: Delayed whole-body scintigrams were obtained approximately 3-4 hours after intravenous injection of radiotracer. Anterior and posterior views were acquired from vertex to feet. COMPARISON: [place], [place], [place] BONE SCAN WHOLE BODY, 09/21/2022, 14:08. FINDINGS: Physiologic uptake is noted within the kidneys and bladder. There is areas of increased uptake within the shoulder girdles, elbows, hips knees and small bones of the feet. Small scattered areas of uptake are also identified within the visualized cervical, thoracic and lumbar spine. IMPRESSION: Stable interval exam demonstrates scattered areas of uptake most consistent with degenerative disease. No new areas of uptake suspicious for metastatic disease are identified. Dictated by: Edna Gonzalez M.D. on 05/14/2024 at 14:31 Approved by: Edna Gonzalez M.D. on 05/14/2024 at 14:33
== END ==
PROVIDERS: Family Provider Family Medicine; PCP Naturopath; Referring Provider Internal Medicine Medical Oncology; Visit Provider Internal Medicine Medical Oncology
DX: C34.11 Malignant neoplasm of upper lobe, right bronchus or lung (principal)
CPT/HCPCS: 78306; A9503